=== PATIENT | female | born 1950 ===

== ENCOUNTER 2016-12-04 08:21 | Day surgery (SDC) | payer MEDICAID, MEDICARE ==
[2016-12-04] MEDS: Polymyxin B/Trimethoprim 10 ML Bottle EYELF SCH ×4 (09:02→10:40)
[2016-12-04] MEDS: Brimonidine 0.2% Ophth Soln 5 ML Bottle EYELF SCH ×4 (09:07→10:40)
[2016-12-04] MEDS: Phenylephrine 2.5% Ophth Soln 2 ML Bot EYELF SCH ×6 (09:12→10:26)
--- NOTE | 2016-12-04 09:12 | PCM.PREANE ---
Preanesthetic Assessment - Anesthesia/Transfusion/Family Hx Anesthesia History: Prior Anesthesia Without Reaction Family History of Anesthesia Reaction: No Transfusion History: No Prior Transfusion(s) - Review of Systems General: No Symptoms Pulmonary: No Symptoms Cardiovascular: No Symptoms Gastrointestinal: No symptoms Neurological: Weakness (left side) Other: Reports: Anxiety (today) - Physical Assessment NPO Status Date: 12/03/16 NPO Status Time: 20:00 Pulse: 63 O2 Sat by Pulse Oximetry: 95 Respiratory Rate: 16 Blood Pressure: 161/69 Temperature: 36.5 C Vital Signs: Last Vital Signs Temp 36.5 C 12/04/16 08:45 Pulse 63 12/04/16 08:45 Resp 16 12/04/16 08:45 BP 161/69 H 12/04/16 08:45 Pulse Ox 95 12/04/16 08:45 Height: 1.52 m Weight: 54.431 kg ASA Class: 3 Mental Status: Alert & Oriented x3 Dentition: Reports: Dentures (upper), Bridge (lower) Thyro-Mental Finger Breadths: 3 Mouth Opening Finger Breadths: 3 ROM/Head Extension: Full Lungs: Clear to auscultation, Normal respiratory effort Cardiovascular: Regular Rate, Regular Rhythm, No Murmurs - Allergies Allergies/Adverse Reactions: Allergies Allergy/AdvReac Type Severity Reaction Status Date / Time No Known Allergies Allergy Verified 12/03/16 10:48 - Anesthesia Plan Pre-Op Medication Ordered: None - Acknowledgements Anesthesia Type Planned: MAC Pt an Appropriate Candidate for the Planned Anesthesia: Yes Alternatives and Risks of Anesthesia Discussed w Pt/Guardian: Yes Pt/Guardian Understands and Agrees with Anesthesia Plan: Yes PreAnesthesia Questionnaire - HOME MEDS Home Medications: Home Meds Alendronate [Fosamax] 70 mg PO ASDIRECTED 12/03/16 [History] Aspirin [Adult Low Dose Aspirin EC] 81 mg PO DAILY 12/03/16 [History] Eltrombopag Olamine [Promacta] 1 tab PO BID 12/03/16 [History] Ezetimibe/Simvastatin [Vytorin 10-10 MG] 1 tab PO DAILY 12/03/16 [History] Losartan Potassium 100 mg PO DAILY 12/03/16 [History] - CURRENT (IN HOUSE) MEDS Current Meds: Current Medications Brimonidine Tartrate (Alphagan 0.2% Oph Soln) 0 ml EYELF ASDIRECTED SHEY Stop: 12/04/16 18:00 Cefuroxime Sodium (Zinacef) 0 mg EYELF ASDIRECTED SHEY Stop: 12/04/16 18:00 Lidocaine HCl (Xylocaine-Mpf 1%) 1 ml INJECT ASDIRECTED SHEY Stop: 12/04/16 18:00 Phenylephrine HCl (Zhang-Synephrine 2.5% Ophth Soln) 0 ml EYELF ASDIRECTED SHEY Stop: 12/04/16 18:00 Pilocarpine HCl (Pilocar 4% Ophth Soln) 0 ml EYELF ASDIRECTED SHEY Stop: 12/04/16 18:00 Polymyxin/Trimethoprim Sulfate (Polytrim Ophth Soln) 0 ml EYELF ASDIRECTED SHEY Stop: 12/04/16 18:00 Last Admin: 12/04/16 09:02 Dose: 1 drop Tetracaine (Pontocaine 0.5% Ophth Drops) 0 ml EYELF ASDIRECTED SHEY Stop: 12/04/16 18:00 Tropicamide (Mydriacyl 1% Ophth Soln) 0 ml EYELF ASDIRECTED SHEY Stop: 12/04/16 18:00
[2016-12-04] MEDS: Tetracaine 0.5% 2 ML Bottle EYELF SCH ×5 (09:30→10:31)
[2016-12-04] MEDS: Lidocaine 1% PF 2 ML SDV INJECT SCH ×2 (09:30→10:30)
[2016-12-04] MEDS: Pilocarpine 4% Ophth Soln 15 ML Bot EYELF SCH ×2 (09:31→10:40)
[2016-12-04] MEDS: Cefuroxime 10 MG/ML SYRINGE EYELF SCH ×2 (09:31→10:35)
--- NOTE | 2016-12-04 10:42 | PCM48HPAN ---
Post Anesthesia Note - EVALUATION WITHIN 48HRS OF ANESTHETIC Vital Signs in Normal Range: Yes Patient Participated in Evaluation: Yes Respiratory Function Stable: Yes Airway Patent: Yes Cardiovascular Function Stable: Yes Hydration Status Stable: Yes Pain Control Satisfactory: Yes Nausea and Vomiting Control Satisfactory: Yes Mental Status Recovered: Yes
[2016-12-04 10:55] VITALS: BP 148/74
== END 2016-12-04 10:52 | disposition home or self-care (01) ==
LOC: JD.SDS 08:21
PROVIDERS: ATTEND Ophthalmology
DX: H25.813 Combined forms of age-related cataract, bilateral (principal); H17.813 Minor opacity of cornea, bilateral; H35.3230 Exudative age-related macular degeneration, bilateral, stage unspecified; H02.834 Dermatochalasis of left upper eyelid; H02.831 Dermatochalasis of right upper eyelid; I10 Essential (primary) hypertension; Z86.73 Personal history of transient ischemic attack (TIA), and cerebral infarction without residual deficits; Z79.82 Long term (current) use of aspirin
CPT/HCPCS: 66984; A9270; C1780; J0697

== ENCOUNTER 2017-01-08 07:12 | Day surgery (SDC) | payer MEDICAID, MEDICARE ==
[~2017-01-08 07:12] MED LIST: Cefuroxime 10 MG/ML SYRINGE EYERT SCH; Lidocaine 1% PF 2 ML SDV INJECT SCH; Pilocarpine 4% Ophth Soln 15 ML Bot EYERT SCH
[2017-01-08] MEDS: Polymyxin B/Trimethoprim 10 ML Bottle EYERT SCH ×3 (07:24→08:37)
[2017-01-08] MEDS: Brimonidine 0.2% Ophth Soln 5 ML Bottle EYEBOTH SCH ×3 (07:28→08:37)
[2017-01-08] MEDS: Phenylephrine 2.5% Ophth Soln 2 ML Bot EYERT SCH ×5 (07:31→08:17)
--- NOTE | 2017-01-08 07:34 | PCM.PREANE ---
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 ) Other: Reports: None, Depression, Anxiety - Physical Assessment NPO Status Date: 01/07/17 NPO Status Time: 22:00 Pulse: 66 O2 Sat by Pulse Oximetry: 96 Respiratory Rate: 16 Blood Pressure: 187/72 Temperature: 36.4 C Height: 1.52 m Weight: 54.431 kg ASA Class: 3 Mental Status: Alert & Oriented x3 Airway Class: Mallampati = 2 Dentition: Reports: Normal Dentition Thyro-Mental Finger Breadths: 3 Mouth Opening Finger Breadths: 3 ROM/Head Extension: Full Lungs: Clear to auscultation, Normal respiratory effort Cardiovascular: Regular Rate, Regular Rhythm - Allergies Allergies/Adverse Reactions: Allergies Allergy/AdvReac Type Severity Reaction Status Date / Time No Known Allergies Allergy Verified 01/07/17 15:32 - Blood Blood Available: No Product(s) Available: None - Anesthesia Plan Pre-Op Medication Ordered: None - Acknowledgements Anesthesia Type Planned: MAC Pt an Appropriate Candidate for the Planned Anesthesia: Yes Alternatives and Risks of Anesthesia Discussed w Pt/Guardian: Yes Pt/Guardian Understands and Agrees with Anesthesia Plan: Yes PreAnesthesia Questionnaire - HOME MEDS Home Medications: Home Meds Alendronate [Fosamax] 70 mg PO ASDIRECTED 12/03/16 [History] Aspirin [Adult Low Dose Aspirin EC] 81 mg PO DAILY 12/03/16 [History] Eltrombopag Olamine [Promacta] 1 tab PO BID 12/03/16 [History] Ezetimibe/Simvastatin [Vytorin 10-10 MG] 1 tab PO DAILY 12/03/16 [History] Losartan Potassium 100 mg PO DAILY 12/03/16 [History] Chlorthalidone 25 mg PO DAILY 01/07/17 [History] Cilostazol 100 mg PO ASDIRECTED 01/07/17 [History] - CURRENT (IN HOUSE) MEDS Current Meds: Current Medications Brimonidine Tartrate (Alphagan 0.2% Ophth Soln) 0 ml EYEBOTH ASDIRECTED SHEY Stop: 01/08/17 18:00 Cefuroxime Sodium (Zinacef) 0 mg EYERT ASDIRECTED SHEY Stop: 01/08/17 23:00 Lidocaine HCl (Xylocaine-Mpf 1%) 10 ml INJECT ASDIRECTED SHEY Stop: 01/08/17 18:00 Phenylephrine HCl (Zhang-Synephrine 2.5% Ophth Soln) 0 ml EYERT ASDIRECTED SHEY Stop: 01/08/17 18:00 Pilocarpine HCl (Pilocar 4% Ophth Soln) 0 ml EYERT ASDIRECTED SHEY Stop: 01/08/17 18:00 Polymyxin/Trimethoprim Sulfate (Polytrim Ophth Soln) 0 ml EYERT ASDIRECTED SHEY Stop: 01/08/17 18:00 Last Admin: 01/08/17 07:24 Dose: 1 drop Tetracaine HCl (Tetracaine 0.5% Steri-Unit Wandy) 0 ml EYERT ASDIRECTED SHEY Stop: 01/08/17 18:00 Tropicamide (Mydriacyl 1% Oph Soln) 0 ml EYERT ASDIRECTED SHEY Stop: 01/08/17 18:00
[2017-01-08] MEDS: Tetracaine HCl/PF 0.5% 4 ML Bottle EYERT SCH ×2 (08:13→08:30)
--- NOTE | 2017-01-08 08:46 | PCM48HPAN ---
Post Anesthesia Note - EVALUATION WITHIN 48HRS OF ANESTHETIC Vital Signs in Normal Range: Yes Patient Participated in Evaluation: Yes Respiratory Function Stable: Yes Airway Patent: Yes Cardiovascular Function Stable: Yes (HTN, but she was hypertensive upon arrival) Hydration Status Stable: Yes Pain Control Satisfactory: Yes Nausea and Vomiting Control Satisfactory: Yes Mental Status Recovered: Yes
[2017-01-08 08:51] VITALS: BP 190/76
== END 2017-01-08 08:48 | disposition home or self-care (01) ==
LOC: JD.SDS 07:12
PROVIDERS: ATTEND Ophthalmology
DX: H26.9 Unspecified cataract (principal); I10 Essential (primary) hypertension; F32.9 Major depressive disorder, single episode, unspecified; Z79.82 Long term (current) use of aspirin; Z79.899 Other long term (current) drug therapy; Z98.890 Other specified postprocedural states
CPT/HCPCS: 66984; A9270; J0697; C1780